=== PATIENT | female | born 1980 | race Caucasian/White ===

== ENCOUNTER 2018-10-12 16:15 | Emergency (ER) | payer OTHER ==
[2018-10-12 16:36] VITALS: BP 135/90
--- NOTE | 2018-10-12 16:40 | UC ---
Throat Pain/Nasal Johnathan HPI - HPI Summary HPI Summary: Cold symptoms last week and now left sinus pressure for the past 2 days with foul tasting post-nasal drainage. - History of Current Complaint Chief Complaint: UCGeneralIllness Stated Complaint: SINUS COMPLAINT Time Seen by Provider: 10/12/18 16:24 Hx Obtained From: Patient Hx Last Menstrual Period: mirena ?: No Onset/Duration: Gradual Onset Severity: Mild Pain Intensity: 6 Cough: None Associated Signs & Symptoms: Positive: Sinus Discomfort Related History: Smoking - Epiglottits Risk Factors Epiglottis Risk Factors: Negative - Allergies/Home Medications Allergies/Adverse Reactions: Allergies Allergy/AdvReac Type Severity Reaction Status Date / Time No Known Allergies Allergy Verified 10/12/18 16:31 Home Medications: Home Medications guaiFENesin ER TAB [Mucinex*] 600 mg PO BID PRN 10/12/18 [History Confirmed ] PMH/Surg Hx/FS Hx/Imm Hx Previously Healthy: Yes Other History Of: Negative For: HIV, Hepatitis B, Hepatitis C - Surgical History Surgical History: Yes Surgery Procedure, Year, and Place: cholecystectomy - Family History Known Family History: Positive: None Negative: Diabetes - Social History Alcohol Use: Occasionally Substance Use Type: None Smoking Status (MU): Current Every Day Smoker Type: Cigarettes Amount Used/How Often: Less than 1/2 PPD Length of Time of Smoking/Using Tobacco: 15 yrs Have You Smoked in the Last Year: Yes When Did the Patient Quit Smoking/Using Tobacco: 3 days ago Household Exposure Type: Cigarettes - Immunization History Most Recent Influenza Vaccination: Current for Season Review of Systems All Other Systems Reviewed And Are Negative: Yes Constitutional: Positive: Negative Skin: Positive: Negative Eyes: Positive: Negative ENT: Positive: Nasal Discharge, Sinus Congestion, Sinus Pain/Tenderness Respiratory: Positive: Negative Cardiovascular: Positive: Negative Gastrointestinal: Positive: Negative Genitourinary: Positive: Negative Motor: Positive: Negative Neurovascular: Positive: Negative Musculoskeletal: Positive: Negative Neurological: Positive: Negative Psychological: Positive: Negative Is Patient Immunocompromised?: No Physical Exam Triage Information Reviewed: Yes Appearance: Well-Appearing, No Pain Distress, Well-Nourished Vital Signs: Initial Vital Signs Temp 98 F 10/12/18 16:32 Pulse 73 10/12/18 16:32 Resp 18 10/12/18 16:32 BP 135/90 10/12/18 16:32 Pulse Ox 100 10/12/18 16:32 Vital Signs Reviewed: Yes Eye Exam: Normal ENT: Positive: Hearing grossly normal, Nasal congestion, Nasal drainage, TMs normal, Sinus tenderness, Other - Yellow purulent post-nasal drainage and purulent nasal coryza with inflamed swollen left sided turbinates. Neck exam: Normal Neck: Positive: Supple, Nontender, No Lymphadenopathy Respiratory Exam: Normal Cardiovascular Exam: Normal Abdominal Exam: Normal Bowel Sounds: Positive: Present Musculoskeletal Exam: Normal Musculoskeletal: Positive: Strength Intact, ROM Intact Neurological Exam: Normal Neurological: Positive: Alert, Muscle Tone Normal Psychological Exam: Normal Skin Exam: Normal Throat Pain/Nasal Course/Dx - Course Course Of Treatment: Comfortable here. Will treat for sinusitis and will give Diflucan since she gets yeast infections with antibiotics. Use of Flonase taught to patient. - Differential Dx/Diagnosis Differential Diagnosis/HQI/PQRI: Sinusitis Provider Diagnosis: Sinusitis Discharge - Sign-Out/Discharge Documenting (check all that apply): Patient Departure All imaging exams completed and their final reports reviewed: No Studies - Discharge Plan Condition: Good Disposition: HOME Prescriptions: Amoxicillin PO (*) [Amoxicillin 875 MG (*)] 875 mg PO BID 10 Days #20 tab Fluconazole 150 MG TAB* [Diflucan 150 MG TAB*] 150 mg PO UC ONCE #1 tablet Fluticasone NASAL SPRAY 50MCG* [Flonase NASAL SPRAY 50MCG*] 2 spray BOTH NARES DAILY 7 Days #1 btl Patient Education Materials: Sinusitis (ED) Referrals: Carlene Wheatley MD [Primary Care Provider] - Additional Instructions: Increase fluids, Follow up with your primary care provider in 5-6 days if no improvement. Take the Diflucan if you start developong signs of a yeast infection and may repeat in one week if needed. - Billing Disposition and Condition Condition: GOOD Disposition: Home
== END 2018-10-12 16:47 | disposition home or self-care (01) ==
LOC: UCCORT 16:15
DX: J32.9 Chronic sinusitis, unspecified (principal); F17.210 Nicotine dependence, cigarettes, uncomplicated
CPT/HCPCS: 99212; G0463

== ENCOUNTER 2018-10-26 16:31 | Emergency (ER) | payer OTHER ==
[2018-10-26 17:48] VITALS: BP 136/86
--- NOTE | 2018-10-26 18:36 | UC ---
UC General HPI - HPI Summary HPI Summary: PT COMPLETED AMOXICILLIN FOR SINUSITIS 3 DAYS AGO. SHE COMES IN FOR ONGOING SINUS PAIN AND GREEN DISCHARGE. SHE HAS A HX OF SINUSITIS AND THIS IS THE SAME. NO FEVER OR HEADACHE. SHE IS USING FLONASE WITH NO RELIEF. - History of Current Complaint Chief Complaint: UCGeneralIllness Stated Complaint: SINUSES Time Seen by Provider: 10/26/18 18:27 Hx Obtained From: Patient Hx Last Menstrual Period: IUD Onset/Duration: Gradual Onset Timing: Constant Pain Intensity: 6 Associated Signs & Symptoms: Negative: Fever, Headache - Allergy/Home Medications Allergies/Adverse Reactions: Allergies Allergy/AdvReac Type Severity Reaction Status Date / Time No Known Allergies Allergy Verified 10/12/18 16:31 PMH/Surg Hx/FS Hx/Imm Hx - Additional Past Medical History Additional PMH: SINUSITIS Other History Of: Negative For: HIV, Hepatitis B, Hepatitis C - Surgical History Surgical History: Yes Surgery Procedure, Year, and Place: cholecystectomy - Family History Known Family History: Positive: None Negative: Diabetes - Social History Lives: With Family Alcohol Use: Occasionally Substance Use Type: None Smoking Status (MU): Current Every Day Smoker Type: Cigarettes Amount Used/How Often: Less than 1/2 PPD Length of Time of Smoking/Using Tobacco: 15 yrs Have You Smoked in the Last Year: Yes When Did the Patient Quit Smoking/Using Tobacco: 3 days ago Household Exposure Type: Cigarettes - Immunization History Most Recent Influenza Vaccination: Current for Season Review of Systems All Other Systems Reviewed And Are Negative: Yes ENT: Positive: Nasal Discharge, Sinus Congestion, Sinus Pain/Tenderness Physical Exam Triage Information Reviewed: Yes Appearance: Well-Appearing Vital Signs: Initial Vital Signs Temp 98 F 10/26/18 17:46 Pulse 62 10/26/18 17:46 Resp 17 10/26/18 17:46 BP 136/86 10/26/18 17:46 Pulse Ox 100 10/26/18 17:46 Vital Signs Reviewed: Yes Eyes: Positive: Conjunctiva Clear ENT: Positive: Nasal congestion, TMs normal, Sinus tenderness - L MAXILLA, Other - MILD SWELLING OVER THE L MAXILLA. Negative: Nasal drainage Neck: Positive: Supple, Nontender, No Lymphadenopathy Respiratory: Positive: Lungs clear, Normal breath sounds, No respiratory distress Cardiovascular: Positive: RRR, No Murmur Abdomen Description: Positive: Nontender, No Organomegaly, Soft Bowel Sounds: Positive: Present Musculoskeletal: Positive: ROM Intact Neurological: Positive: Alert Psychological: Positive: Age Appropriate Behavior Skin Exam: Normal Skin: Negative: Rashes Course/Dx - Differential Dx - Multi-Symptom Differential Diagnoses: Other - HX AND PE C/W SINUSITIS TX FAILURE ON AMOXICILLIN AND FLONASE. RISK OF C-DIFF COLITIS FROM ANTIBIOTICS D/W PT. PT AGREES TO TAKE THAT RISK. RISK OF TENDINOPATHY FROM LEVAQUIN D/W PT, SHE DECLINED THE LEVAQUIN THUS WILL TX DOXYCYCLINE X 10DAYS AND ADD THE STEROID. SHE AGREES TO TAKE A PROBIOTIC WHILE ON THE ANTIBIOTICS. - Diagnoses Provider Diagnosis: Sinusitis Discharge - Sign-Out/Discharge Documenting (check all that apply): Patient Departure All imaging exams completed and their final reports reviewed: No Studies - Discharge Plan Condition: Stable Disposition: HOME Prescriptions: DOXYcycline CAP(*) [DOXYcycline 100MG CAP(*)] 100 mg PO BID 10 Days #20 cap methylPREDNISolone [Medrol Dosepak 4 MG*] 0 mg PO .SEE LORI INSTRUCTION #1 tab Patient Education Materials: Sinusitis (ED) Referrals: Natacha Jane NP [Primary Care Provider] - 7 Days - Billing Disposition and Condition Condition: STABLE Disposition: Home
[2018-10-26] MEDS ORDERED: DOXYcycline CAP(*) 100 MG PO ONE (19:12)
== END 2018-10-26 19:15 | disposition home or self-care (01) ==
LOC: UCCORT 16:31
DX: J32.9 Chronic sinusitis, unspecified (principal); F17.210 Nicotine dependence, cigarettes, uncomplicated
CPT/HCPCS: 99212; A9270-GY; G0463

== ENCOUNTER → 2018-12-18 05:48 | Day surgery (SDC) | payer OTHER ==
--- NOTE | 2018-12-12 13:42 | HP ---
Amended report to enter cosigning physician. PREOPERATIVE HISTORY AND PHYSICAL: DATE OF ADMISSION/SURGERY: 12/18/18 DATE OF OFFICE VISIT: 12/12/18 ATTENDING SURGEON: Dr. Jay Cruz* (dictated by ANMOL Reilly). PROCEDURE: Left knee arthroscopy, partial meniscectomy, and excision of ganglion. CHIEF COMPLAINT: Left knee pain. HISTORY OF PRESENT ILLNESS: Kelly is a 38-year-old female who presents to the clinic for left knee pain due to left medial meniscus tear. She has failed conservative measures and therefore agreed to undergo a left knee arthroscopy, partial meniscectomy, and excision of ganglion on 12/18/18. PAST MEDICAL HISTORY: 1. Depression. 2. Anxiety. PAST SURGICAL HISTORY: Cholecystectomy. Denies prior complications to anesthesia. MEDICATIONS: 1. Tylenol 8 Hour 650 mg 1 by mouth every day. 2. Fluticasone 50 mcg spray, 2 sprays each nostril. 3. Allergy 4 Hour 1 by mouth daily. ALLERGIES: No known drug allergies. FAMILY HISTORY: Positive for diabetes, hypertension, RA. She does have a brother with a history of DVT. He is factor V Leiden positive. She has been tested for factor V Leiden in the past and was negative. 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 She currently smokes 4 cigarettes a day. She denies alcohol consumption. She denies illegal drug use. She is right-hand dominant. REVIEW OF SYSTEMS: A 14-point review of systems was reviewed with the patient. Positive for current complaint, otherwise negative. Denies fever, chills, chest pain, shortness of breath, history of bleeding disorder, history of DVT of PE. PHYSICAL EXAMINATION GENERAL: A 38-year-old, well developed, well nourished female in no acute distress. Alert and oriented x3. Appropriate mood and affect. No problems with coordination of the lower extremities. VITAL SIGNS: Height 65, weight 269. Blood pressure 130/86, respiratory rate 18 , BMI 44.8. HEENT: Normocephalic, atraumatic. PERRLA. Throat clear. NECK: Supple. PULMONARY: Lungs are clear to auscultation bilaterally. No wheezing, rhonchi, or rales. CARDIO: Regular rate and rhythm. S1, S2. No murmurs, gallops, or rubs. No edema. ABDOMEN: Positive bowel sounds. Soft, nontender. NEUROLOGIC: Alert and oriented x3. Cranial nerves grossly intact. MUSCULOSKELETAL: Left lower extremity: Skin is intact. No warmth or erythema. Small mass that is nontender and mobile. Range of motion 2 to 120. Stable to varus and valgus stress, stable Juan. A posterior drawer shows medial joint line positive Savannah. Calf soft, nontender. 5/5 strength to ankle dorsiflexion and plantar flexion. +2 DP pulse. Sensation is intact to light touch distally. DIAGNOSTIC STUDIES: MRI of the left knee revealed a displaced medial meniscus tear with mild chondral changes at the patellar facet. IMPRESSION: Left knee medial meniscus tear and ganglion cyst. PLAN: The patient is scheduled to undergo left knee arthroscopy, partial meniscectomy, and excision of ganglion with Dr. Cruz on 12/18/18. She will follow up in 10 to 14 days postop for suture removal. Toradol and Tylenol will be used for postop pain management. ANMOL REILLY [id number]/[facility] #: [id number] [facility] HOSPITALJefferson
[~2018-12-18 05:48] MED LIST: Acetaminophen TAB* 325 MG PO PRN; Buffered Lidocaine 1% SYRIN* 1 ML/SYRINGE INTRADERM ONE; Dexamethasone IV* 4 MG/ML 1 ML (4 MG) ONE; HYDROcodone/ACETAMIN 5-325 MG* 1 TAB PO PRN; Ketorolac INJ* 30 MG/ML 1 ML VIAL ONE; Lactated Ringers 1000 ML Bag* 1,000 ML IV SCH; Lidocaine 1% MPF wEPI 200,000* 30 ML SDV ONE; Lidocaine 2% PF * 5 ML VIAL ONE; Metoclopramide IV* 5 MG/ML 2 ML VIAL ONE; Midazolam* 1 MG/ML 2 ML VIAL (2 MG) ONE; Naloxone* 0.4 MG/ML 1 ML VIAL IV PRN; Ondansetron INJ* 2 MG/ML VIAL ONE; Propofol* 10 MG/ML 20 ML BTL ONE; Ropivacaine* 2 MG/ML 20 ML VIAL (0.2%) ONE; ceFAZolin 2 GM PREMIX in ORs 2 GM/50 ML BAG IVPB ONE; fentaNYL* 50 MCG/ML 2 ML VIAL (100 MCG VIAL) ONE
[2018-12-18 10:53] VITALS: BP 126/94
--- NOTE | 2018-12-18 12:14 | OP ---
CC: PCP OPERATIVE REPORT: DATE OF OPERATION: 12/18/18 DATE OF : 84 SURGEON: Jay Cruz MD ASSISTANTS: 1. ANMOL Fields 2. ANMOL Sanchez Assistants were needed due to the size of the patient to help with positioning and retraction. ANESTHESIOLOGIST: Dr. Villanueva. ANESTHESIA: General. PRE-OP DIAGNOSIS: Left knee ganglion at the pes anserinus as well as medial meniscal tear. POST-OP DIAGNOSIS: Left knee ganglion at the pes anserinus as well as medial meniscal tear. OPERATIVE PROCEDURE: Left knee arthroscopy with partial medial and lateral meniscectomy, chondroplasty of the patella and lateral tibial plateau, synovectomy, and then open excision of ganglion. COMPLICATIONS: None. ESTIMATED BLOOD LOSS: Minimal. TOURNIQUET TIME: Zero minute. INDICATIONS: Kelly Gaona is a 38-year-old female who presents with left knee pain and catching and locking symptoms as well as a small mass, which would grow and shrink. She had persistent pain. She had failed conservative management, physical therapy, antiinflammatories, injection. She has elected to proceed with surgical treatment. DESCRIPTION OF PROCEDURE: The patient was greeted in the preoperative area by the attending surgeon. Correct extremity was marked and consent was confirmed. The patient was brought back to the operating suite where she was placed in supine position on the operating table. She then underwent general anesthesia and LMA intubation, after which she was appropriately positioned in the bed and lateral post was positioned. An unsterile tourniquet was placed high in the proximal thigh. The left leg was then prepped and draped in the usual sterile fashion, beginning with chlorhexidine soap, scrub, and alcohol wipe and a final prep of ChloraPrep. After appropriate surgical pause indicating side, site, procedure, administration of antibiotics, the knee was intra-articularly injected with 1% lidocaine with epi. The lateral port was made using 11 blade. The scope was brought into the joint. Joint was examined. ACL and PCL were intact. There was abundant synovitis in the plica medially and laterally that was present. The anteromedial portal was made in an outside-in fashion. Shaver was used to debride back the ligamentum. The synovectomy was done medially and laterally, removed the plica. The knee was taken to full extension. Once this was removed , then the patellofemoral joint was examined. There was a small amount of chondrosis with grade 2 changes in the inferior aspect. This was debrided back using shaver. Remainder of the patellofemoral joint had grade 0 to 1 changes. The medial and lateral gutters were intact without any loose bodies. The scope was brought into the medial compartment. There was grade 0 to 1 changes to the femoral condyle and grade 1 to 2 changes of the medial plateau as well as an unstable degenerative meniscus tear with horizontal and complex findings. The rebecca and biters were used to debride back the unstable flap all the way to the root with care to try not to damage the cartilage. Once this was debrided back, attention was directed to the lateral compartment. Lateral femoral condyle had grade 0 changes. Lateral plateau had grade 1 changes with mild fraying. A small chondroplasty was done in the lateral compartment. The lateral meniscus had unstable fraying of the body of the meniscus, which was debrided back using rebecca, but the remainder of meniscus was intact. Once this was completed, the knee was thoroughly lavaged and removed of any fluid and debris. Final images were obtained. Wounds were copiously irrigated. Attention was directed to the open portion of the case. A 15-blade was used to make an incision in line with the pes, a longitudinal incision splitting the difference between the tibial tubercle and the posterior medial aspect of the tibia centered over the hamstring. Soft tissue was carefully exposed to expose the pes, which was identified. The incision made in line with the pes was then made and a small amount of fatty tissue was removed where the ganglion was in the MRI, this was obviously a much smaller than it had been previously. Care was taken to try to look at the length that was under and around the pes to make sure there was no evidence of stalk. Once any abnormal tissue was removed, wounds were then copiously irrigated with sterile saline. The wound was closed in layers with 3-0 Monocryl and 3-0 nylon. The portal was closed using 3-0 nylon. The wounds and the knee were intra-articularly injected with 0.2% ropivacaine. Sterile dressings were applied and Cryo/Cuff. She was awoken from anesthesia and transferred to the PACU in stable condition. POSTOPERATIVE PLAN: She will be weightbearing as tolerated. Range of motion as tolerated. She will be discharged on pain medication. DVT prophylaxis was considered but deferred due to no previous personal or family history. I will see the patient back in 10 to 14 days. [id number]/[facility] #: [id number] ZOE
== END | disposition home or self-care (01) ==
LOC: OR 05:48
PROVIDERS: ATTEND Orthopaedic Surgery
DX: S83.242A Other tear of medial meniscus, current injury, left knee, initial encounter (principal); S83.282A Other tear of lateral meniscus, current injury, left knee, initial encounter; M67.462 Ganglion, left knee; X58.XXXA Exposure to other specified factors, initial encounter; Y92.9 Unspecified place or not applicable; Z72.0 Tobacco use; E66.01 Morbid (severe) obesity due to excess calories; M19.90 Unspecified osteoarthritis, unspecified site
CPT/HCPCS: 81025; J0690; J1100; J1885; J2001; J2250; J2405; J2704; J2765; J2795; J3010